=== PATIENT | female | born 1985 | race African-American/Black ===

== ENCOUNTER 2016-05-23 01:45 | Emergency (ER) | payer OTHER ==
[~2016-05-23] VITALS: Ht 167.6 cm; Wt 84.9 kg
[~2016-05-23 01:45] MED LIST: ACETAMINOPHEN-1 EAC1 PO; AZITHROMYCIN250 MG; ENDOCET 5-3251 EACH PO; HYCODAN SYRUP480 ML PO; IRON325 M1 PO; MOTRIN800 MG PO; NATALCARE RX1 TABLE1 PO; NO HOME MEDS; NOHOMEMEDS; PREDNISONE10 MG; PRENATAL TABLE1 EAC3 PO; PROAIR HFA8.5 GM; ULTRAM50 MG PO; VALIUM5 MG PO; VALTREX50 MG/ML PO
[2016-05-23 01:48] VITALS: BP 148/114
== END 2016-05-23 03:09 | disposition left against medical advice (07) ==
LOC: EME 01:45 → EXP 01:45
DX: G89.11 Acute pain due to trauma (principal); R10.32 Left lower quadrant pain; R10.31 Right lower quadrant pain; V49.40XA Driver injured in collision with unspecified motor vehicles in traffic accident, initial encounter
CPT/HCPCS: 80053; 81003; 83690; 85027; 99281; 99284; G0480